=== PATIENT | female | born 2000 | race Caucasian/White ===

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

== ENCOUNTER 2025-03-02 14:24 | Emergency (ER) | payer OTHER ==
[~2025-03-02] VITALS: Ht 157.5 cm; Wt 66.0 kg
[~2025-03-02 14:24] MED LIST: FLUO-365 PO; HYDR-3363 PO
[2025-03-02 18:44] VITALS: BP 135/90; TEMP 97.3; O2SAT 99
== END 2025-03-02 18:50 | disposition home or self-care (01) ==
LOC: M ED 14:24
DX: S69.91XA Unspecified injury of right wrist, hand and finger(s), initial encounter (principal); W50.3XXA Accidental bite by another person, initial encounter; Y92.9 Unspecified place or not applicable; Y93.9 Activity, unspecified; Y99.0 Civilian activity done for income or pay; Z88.8 Allergy status to other drugs, medicaments and biological substances